=== PATIENT | female | born 1960 | race Caucasian/White ===

== ENCOUNTER 2022-07-03 09:22 | Outpatient (CLI) | payer BC | END 2022-07-03 23:59 | disposition home or self-care (01) | LOC: LAB 09:22 | PROVIDERS: ATTEND Podiatrist | DX: Z01.818 Encounter for other preprocedural examination (principal); R00.1 Bradycardia, unspecified | CPT/HCPCS: 93005 ==

== ENCOUNTER 2023-03-18 14:23 | Outpatient (CLI) | payer BC | END 2023-03-18 23:59 | disposition home or self-care (01) | LOC: RAD 14:23 | PROVIDERS: ATTEND Podiatrist | DX: Z01.811 Encounter for preprocedural respiratory examination (principal); I51.7 Cardiomegaly | CPT/HCPCS: 93005 ==

== ENCOUNTER 2023-11-10 09:26 | Outpatient (CLI) | payer MEDICARE, OTHER | END 2023-11-10 23:59 | disposition home or self-care (01) | LOC: RAD 09:26 | PROVIDERS: ATTEND Podiatrist | DX: Z09 Encounter for follow-up examination after completed treatment for conditions other than malignant neoplasm (principal); M19.072 Primary osteoarthritis, left ankle and foot; G89.18 Other acute postprocedural pain; M77.32 Calcaneal spur, left foot; M25.472 Effusion, left ankle | CPT/HCPCS: 73718; 73721 ==